=== PATIENT | male | born 1975 | race Caucasian/White ===

== ENCOUNTER 2016-08-06 21:13 | Emergency (ER) | payer SELFPAY ==
[2014-09-26 08:54] VITALS: BMI 37.4
[~2016-08-06 21:13] MED LIST: GLUCOPHAGE500 MG PO; HYDROCODONE-APA1 TAB PO
[2016-08-06 23:42] LABS: UDS - AMPHET POSITIVE QUAL (NEGATIVE); UDS - BARB NEGATIVE QUAL (NEGATIVE); UDS - BENZO NEGATIVE QUAL (NEGATIVE); UDS - COCAINE NEGATIVE QUAL (NEGATIVE); UDS - METH NEGATIVE QUAL (NEGATIVE); UDS - OPIATE NEGATIVE QUAL (NEGATIVE); UDS - PCP NEGATIVE QUAL (NEGATIVE); UDS - THC NEGATIVE QUAL (NEGATIVE)
== END 2016-08-07 00:16 | disposition home or self-care (01) ==
LOC: D.ER 21:13
PROVIDERS: Physician Assistant Medical
DX: L02.415 Cutaneous abscess of right lower limb (principal); F17.200 Nicotine dependence, unspecified, uncomplicated